=== PATIENT | male | born 1970 | race Caucasian/White ===

== ENCOUNTER 2023-07-11 06:54 | Day surgery (SDC) | payer OTHER ==
[2023-07-11] MEDS ORDERED: DIPRIVAN 200 MG/20 ML IV ONE (08:36)
[2023-07-11] MEDS ORDERED: Versed 2 MG/2 ML Injection ONE (08:38)
[2023-07-11] MEDS ORDERED: Lactated Ringers 1,000 ML IV ONE (08:51)
--- NOTE | 2023-07-11 10:02 | XRAY ---
Indication: Left hip and greater trochanter bursa injection. Intraoperative fluoroscopy provided for 16 seconds. 2 digital spot image submitted for interpretation demonstrates needle tip projecting lateral to the left femur neck. Second needle tip lateral to greater trochanter. Small amount of contrast injected for both needle tip placement. Correlate with intraoperative findings/report.
--- NOTE | 2023-07-11 10:04 | XRAY ---
16 seconds of fluoroscopy was used in surgery for a left intra-articular hip and greater trochanteric bursa injection.
== END 2023-07-11 09:00 | disposition home or self-care (01) ==
LOC: SDC-PAIN 06:54
PROVIDERS: ATTEND Psychiatry & Neurology Pain Medicine
DX: M16.12 Unilateral primary osteoarthritis, left hip (principal); E11.9 Type 2 diabetes mellitus without complications; Z79.899 Other long term (current) drug therapy
CPT/HCPCS: 20610; 73502; 77002; 82947; J2250; J2704; Q9966